=== PATIENT | male | born 2000 | race African-American/Black ===

== ENCOUNTER 2022-03-13 22:26 | Emergency (ER) | payer MEDICAID, SELFPAY ==
--- NOTE | ~2022-03-13 | XR_ITS ---
EXAMINATION: XR WRIST, RIGHT CLINICAL INFORMATION: Blunt trauma COMPARISON: None TECHNIQUE: PA, lateral, and oblique views of the right wrist. FINDINGS: The bones and soft tissues are normal. No fracture. Alignment is anatomic with normal joint spaces. No erosions or abnormal soft tissue calcifications. XR/XR wrist RT 2V IMPRESSION: Normal right wrist.
[2022-03-13 22:30] VITALS: BP 122/86; PULSE 76; O2SAT 98; BMI 25.1
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
[2022-03-13 22:36] VITALS: BP 107/63; PULSE 78; RESP 16; TEMP 36.4; O2SAT 97
== END 2022-03-14 01:15 | disposition home or self-care (01) ==
PROVIDERS: Emergency Provider Emergency Medicine
DX: M25.531 Pain in right wrist (principal)
CPT/HCPCS: 73100; 99282; 99283